=== PATIENT | male | born 1950 | race Caucasian/White ===

== ENCOUNTER 2017-06-20 15:02 | Inpatient (IN) | payer MEDICARE, OTHER, SELFPAY ==
[~2017-06-20] VITALS: Ht 182.9 cm; Wt 112.1 kg
[2017-06-20] MEDS ORDERED: SODIUM CHLORIDE 0.9% 1,000 ML IV ONE (15:18)
[2017-06-20] MEDS ORDERED: SODIUM CHLORIDE 0.9% 1,000ML IVBOLUS ONE (15:30)
[2017-06-20 15:45] LABS: HEMATOCRIT 43.7 % (39.2-51.8); HEMOGLOBIN 14.3 g/dL (13.7-18.0); WHITE BLOOD COUNT 7.6 x10^3/uL (3.4-10)
[2017-06-20 15:55] LABS: ASPARTATE AMINO TRANSFERASE 51 U/L (15-37); BLOOD UREA NITROGEN 41 mg/dL (7-18)
[2017-06-20 17:21] LABS: DAU SCREEN DISCLAIMER
[2017-06-20 17:28] LABS: PATH.CAST-FLAG NOT PRESENT; SPERM-FLAG NOT PRESENT; SRC-FLAG NOT PRESENT; XTAL-FLAG NOT PRESENT; YLC-FLAG NOT PRESENT
[2017-06-20] MEDS ORDERED: LABETALOL 5MG/ML, 20ML ONE (19:51)
[2017-06-20] MEDS ORDERED: LABETALOL 5MG/ML, 20ML IVPush ONE (20:00)
[2017-06-20 20:30] VITALS: BP 148/76
[2017-06-20] MEDS ORDERED: INSULIN ASPART 100 UNITS/ML, PEN SQ-INSULIN SCH (21:00)
[2017-06-20] MEDS ORDERED: GLUCAGON 1 MG IM PRN (23:30)
[2017-06-20] MEDS ORDERED: DEXTROSE 4 GM TAB.CHEW PO PRN (23:30)
[2017-06-20] MEDS ORDERED: ACETAMINOPHEN 325 MG TABLET PO PRN (23:30)
[2017-06-20] MEDS ORDERED: BISACODYL 10 MG SUPP PR PRN (23:30)
[2017-06-20] MEDS ORDERED: LABETALOL 5MG/ML, 20ML IVPush PRN (23:30)
[2017-06-20] MEDS ORDERED: DOCUSATE 100 MG CAPSULE PO PRN (23:30)
[2017-06-20] MEDS ORDERED: DEXTROSE 50%, 50ML SYRINGE IVPush PRN (23:30)
[2017-06-20] MEDS ORDERED: POLYETHYLENE GLYCOL 17 GM PACKET PO PRN (23:30)
[2017-06-20] MEDS ORDERED: ONDANSETRON 2MG/ML, 2ML IVPush PRN (23:30)
[2017-06-20] MEDS: HEPARIN 5,000 UNITS/ML, 1ML SQ SCH (23:36)
[2017-06-21] MEDS: SODIUM CHLORIDE 0.9% 1,000 ML IV SCH ×2 (00:25→08:06)
[2017-06-21 01:25] VITALS: BP 124/76
[2017-06-21 05:47] LABS: HEMATOCRIT 41.7 % (39.2-51.8); HEMOGLOBIN 13.7 g/dL (13.7-18.0)
[2017-06-21 06:05] LABS: ASPARTATE AMINO TRANSFERASE 50 U/L (15-37); BLOOD UREA NITROGEN 17 mg/dL (7-18)
[2017-06-21 07:30] VITALS: BP 139/77
[2017-06-21] MEDS: INSULIN ASPART 100 UNITS/ML, PEN SQ-INSULIN SCH ×4 (08:03→20:52)
[2017-06-21] MEDS: HEPARIN 5,000 UNITS/ML, 1ML SQ SCH ×3 (08:03→23:30)
[2017-06-21] MEDS: INSULIN DETEMIR 100 UNITS/ML, PEN SQ-INSULIN SCH ×2 (08:04→18:28)
[2017-06-21] MEDS: SODIUM CHLORIDE FLUSH 10ML SYR IVF SCH ×2 (08:06→20:52)
[2017-06-21 08:36] LABS: HEP B SURF. AB 89.8 mIU/mL (0.0-10.0)
[2017-06-21 16:00] VITALS: BP 120/65
[2017-06-21 19:58] VITALS: BP 148/76
[2017-06-22 01:16] VITALS: BP 129/75
[2017-06-22 05:40] LABS: HEMOGLOBIN 13.5 g/dL (13.7-18.0); WHITE BLOOD COUNT 8.1 x10^3/uL (3.4-10)
[2017-06-22 06:22] LABS: ASPARTATE AMINO TRANSFERASE 36 U/L (15-37); BLOOD UREA NITROGEN 13 mg/dL (7-18)
[2017-06-22 07:20] VITALS: BP 128/77
[2017-06-22] MEDS: HEPARIN 5,000 UNITS/ML, 1ML SQ SCH ×3 (07:30→23:30)
[2017-06-22] MEDS: SODIUM CHLORIDE FLUSH 10ML SYR IVF SCH ×2 (09:00→21:00)
[2017-06-22] MEDS: INSULIN DETEMIR 100 UNITS/ML, PEN SQ-INSULIN SCH ×4 (09:14→22:33)
[2017-06-22] MEDS: INSULIN ASPART 100 UNITS/ML, PEN SQ-INSULIN SCH ×5 (09:16→22:33)
[2017-06-22 12:21] VITALS: BP 127/80
[2017-06-22] MEDS ORDERED: morphine SULFATE 10 MG/ML, 1ML IVPush ONE (14:00)
[2017-06-22] MEDS ORDERED: HYDROcodone/APAP 5/325 TABLET PO PRN (17:00)
[2017-06-22 18:58] VITALS: BP 135/73
[2017-06-22] MEDS ORDERED: LIDOCAINE GEL 2%, 5ML TP ONE (23:30)
[2017-06-22] MEDS ORDERED: MORPHINE SULFATE 4 MG/ML, 1ML IVPush ONE (23:30)
[2017-06-22 23:39] VITALS: BP 148/92
[2017-06-23 01:55] LABS: HEMATOCRIT 42.2 % (39.2-51.8); HEMOGLOBIN 13.9 g/dL (13.7-18.0)
[2017-06-23 02:05] LABS: BLOOD UREA NITROGEN 25 mg/dL (7-18)
[2017-06-23 03:09] VITALS: BP 141/84
[2017-06-23] MEDS ORDERED: PHARMACY MAY ADJ FOR RENAL FX MC PRN (04:30)
[2017-06-23] MEDS: CEFEPIME 1 GM in DEXTROSE 5% 50 ML IV SCH (05:02)
[2017-06-23 05:33] VITALS: BP 144/84
[2017-06-23] MEDS: TAMSULOSIN 0.4 MG CAP.ER.24H PO SCH ×2 (05:49→10:51)
[2017-06-23 06:36] VITALS: BP 129/88
[2017-06-23] MEDS: INSULIN ASPART 100 UNITS/ML, PEN SQ-INSULIN SCH ×4 (07:00→21:13)
[2017-06-23] MEDS: SODIUM CHLORIDE FLUSH 10ML SYR IVF SCH ×2 (10:51→21:14)
[2017-06-23] MEDS: INSULIN DETEMIR 100 UNITS/ML, PEN SQ-INSULIN SCH ×2 (10:52→21:14)
[2017-06-23 13:55] VITALS: BP 106/70
[2017-06-23 20:30] VITALS: BP 115/74
[2017-06-24] MEDS: CEFEPIME 1 GM in DEXTROSE 5% 50 ML IV SCH ×2 (05:00→16:30)
[2017-06-24 05:07] VITALS: BP 116/75
[2017-06-24 05:55] LABS: BLOOD UREA NITROGEN 29 mg/dL (7-18)
[2017-06-24 05:56] LABS: HEMOGLOBIN 11.8 g/dL (13.7-18.0); WHITE BLOOD COUNT 13.8 x10^3/uL (3.4-10)
[2017-06-24 05:58] LABS: ASPARTATE AMINO TRANSFERASE 33 U/L (15-37)
[2017-06-24 07:33] VITALS: BP 117/76
[2017-06-24] MEDS: INSULIN ASPART 100 UNITS/ML, PEN SQ-INSULIN SCH ×4 (07:42→22:00)
[2017-06-24] MEDS: SODIUM CHLORIDE FLUSH 10ML SYR IVF SCH ×2 (09:07→22:00)
[2017-06-24] MEDS: TAMSULOSIN 0.4 MG CAP.ER.24H PO SCH (09:07)
[2017-06-24] MEDS: INSULIN DETEMIR 100 UNITS/ML, PEN SQ-INSULIN SCH ×2 (09:07→22:00)
[2017-06-24 12:53] VITALS: BP 125/73
[2017-06-24 19:29] VITALS: BP 111/63
[2017-06-25 01:02] VITALS: BP 115/67
[2017-06-25] MEDS: CEFEPIME 1 GM in DEXTROSE 5% 50 ML IV SCH ×2 (04:56→17:46)
[2017-06-25 06:02] LABS: HEMATOCRIT 32.5 % (39.2-51.8); HEMOGLOBIN 10.9 g/dL (13.7-18.0); WHITE BLOOD COUNT 9.2 x10^3/uL (3.4-10)
[2017-06-25 06:13] LABS: ASPARTATE AMINO TRANSFERASE 69 U/L (15-37); BLOOD UREA NITROGEN 25 mg/dL (7-18)
[2017-06-25 06:55] VITALS: BP 118/68
[2017-06-25] MEDS: TAMSULOSIN 0.4 MG CAP.ER.24H PO SCH (09:36)
[2017-06-25] MEDS: SODIUM CHLORIDE FLUSH 10ML SYR IVF SCH ×2 (09:36→20:35)
[2017-06-25] MEDS: INSULIN DETEMIR 100 UNITS/ML, PEN SQ-INSULIN SCH ×2 (09:36→20:36)
[2017-06-25] MEDS: INSULIN ASPART 100 UNITS/ML, PEN SQ-INSULIN SCH ×4 (09:36→20:36)
[2017-06-25 12:10] VITALS: BP 108/66
[2017-06-25 19:27] VITALS: BP 124/66
[2017-06-26 01:27] VITALS: BP 120/70
[2017-06-26] MEDS: CEFEPIME 1 GM in DEXTROSE 5% 50 ML IV SCH (04:25)
[2017-06-26 07:45] VITALS: BP 127/74
[2017-06-26] MEDS: INSULIN ASPART 100 UNITS/ML, PEN SQ-INSULIN SCH ×4 (08:34→21:10)
[2017-06-26] MEDS: SODIUM CHLORIDE FLUSH 10ML SYR IVF SCH ×2 (08:35→20:47)
[2017-06-26] MEDS: TAMSULOSIN 0.4 MG CAP.ER.24H PO SCH (08:35)
[2017-06-26] MEDS: INSULIN DETEMIR 100 UNITS/ML, PEN SQ-INSULIN SCH ×2 (08:35→21:09)
[2017-06-26 13:57] VITALS: BP 126/64
[2017-06-26] MEDS ORDERED: TAMS-11 PO (16:28)
[2017-06-26] MEDS ORDERED: INSU100I18 SQ-INSULIN (16:28)
[2017-06-26] MEDS ORDERED: INSU100I28 SQ-INSULIN (16:28)
[2017-06-26] MEDS ORDERED: NITR100C56 PO (16:28)
[2017-06-26] MEDS ORDERED: ACET325T14 PO (16:28)
[2017-06-26 20:18] VITALS: BP 127/51
[2017-06-26] MEDS: NITROFURANTOIN (MACROBID) 100 MG CAPSULE PO SCH (20:46)
[2017-06-27 01:23] VITALS: BP 119/72
[2017-06-27 03:06] LABS: PSA, FREE 1.19 ng/mL
[2017-06-27 05:19] LABS: HEMATOCRIT 32.9 % (39.2-51.8); HEMOGLOBIN 11.1 g/dL (13.7-18.0); WHITE BLOOD COUNT 7.6 x10^3/uL (3.4-10)
[2017-06-27 05:47] LABS: ASPARTATE AMINO TRANSFERASE 59 U/L (15-37); BLOOD UREA NITROGEN 16 mg/dL (7-18)
[2017-06-27 07:47] VITALS: BP 125/79
[2017-06-27] MEDS: SODIUM CHLORIDE FLUSH 10ML SYR IVF SCH (09:00)
[2017-06-27] MEDS: INSULIN ASPART 100 UNITS/ML, PEN SQ-INSULIN SCH ×2 (09:01→12:37)
[2017-06-27] MEDS: INSULIN DETEMIR 100 UNITS/ML, PEN SQ-INSULIN SCH (09:01)
[2017-06-27] MEDS: TAMSULOSIN 0.4 MG CAP.ER.24H PO SCH (09:02)
[2017-06-27] MEDS: NITROFURANTOIN (MACROBID) 100 MG CAPSULE PO SCH (09:02)
[2017-06-27] MEDS ORDERED: FLU VACC QS2017-18 (36MOS+) UP/PF 0.5 ML IM-VACC ONE (12:30)
== END 2017-06-27 13:10 | DRG 682 ==
LOC: ED 18:04 → EDIP 18:05 → ED 18:29 → 3NE 20:25
PROVIDERS: ADMIT Hospitalist; ATTEND Hospitalist
PROC: 0T9B70Z Drainage of Bladder with Drainage Device, Via Natural or Artificial Opening (ICD-10-PCS; principal; 2017-06-20)
PROC: 0T9B80Z Drainage of Bladder with Drainage Device, Via Natural or Artificial Opening Endoscopic (ICD-10-PCS; 2017-06-23)
PROC: 0TJB8ZZ Inspection of Bladder, Via Natural or Artificial Opening Endoscopic (ICD-10-PCS; 2017-06-23)
DX: N17.9 Acute kidney failure, unspecified (principal); R53.2 Functional quadriplegia; E44.0 Moderate protein-calorie malnutrition; E11.42 Type 2 diabetes mellitus with diabetic polyneuropathy; E11.65 Type 2 diabetes mellitus with hyperglycemia; D64.9 Anemia, unspecified; S91.101A Unspecified open wound of right great toe without damage to nail, initial encounter; S37.30XA Unspecified injury of urethra, initial encounter; N13.30 Unspecified hydronephrosis; K75.81 Nonalcoholic steatohepatitis (NASH); N40.0 Benign prostatic hyperplasia without lower urinary tract symptoms; G51.0 Bell's palsy; I10 Essential (primary) hypertension; I16.0 Hypertensive urgency; J32.9 Chronic sinusitis, unspecified; M51.36 Other intervertebral disc degeneration, lumbar region; N28.1 Cyst of kidney, acquired; N31.9 Neuromuscular dysfunction of bladder, unspecified; N39.41 Urge incontinence; Z86.73 Personal history of transient ischemic attack (TIA), and cerebral infarction without residual deficits; Z23 Encounter for immunization; Z68.33 Body mass index [BMI] 33.0-33.9, adult
CPT/HCPCS: 36415; 70450; 71010; 72110; 76770; 80048; 80053; 80307; 81001; 82140; 82436; 82570; 82947; 82962; 83036; 83605; 83735; 83935; 83970; 84100; 84133; 84153; 84154; 84300; 85014; 85018; 85025; 86705; 86706; 86709; 86803; 87086; 87340; 90686; 93005; 96372; 96374; J0692; J1644; J1815; G0103; G0479; J7030

== ENCOUNTER 2017-07-02 14:33 | Inpatient (IN) | payer MEDICARE ==
[~2017-07-02] VITALS: Ht 182.9 cm; Wt 119.0 kg
[~2017-07-02 14:33] MED LIST: ACET325T14 PO; INSU100I18 SQ-INSULIN; INSU100I28 SQ-INSULIN; NITR100C56 PO; TAMS-11 PO
[2017-07-02 15:00] LABS: MEAN CORPUSCULAR HEMOGLOBIN 30.6 pg (27.5-34.5); MEAN CORPUSCULAR HGB CONC 33.4 g/dL (33.2-36.2); MEAN CORPUSCULAR VOLUME 91.5 fL (81-97); MEAN PLATELET VOLUME 7.8 fL (7.4-10.4); PLATELET COUNT 314 x10^3/uL (130-400); RED BLOOD COUNT 2.87 x10^6/uL (4.38-5.82); RED CELL DISTRIBUTION WIDTH 13.9 % (9.4-14.8)
[2017-07-02] MEDS ORDERED: SODIUM CHLORIDE FLUSH 10ML SYR IVF ONE (15:00)
[2017-07-02 15:06] LABS: ALBUMIN 2.2 g/dL (3.4-5.0); ANION GAP 7 mmol/L (5-15); CALCIUM 7.9 mg/dL (8.5-10.1); CHLORIDE 102 mmol/L (98-107); CREATININE 1.08 mg/dL (0.7-1.3)
[2017-07-02 15:11] LABS: BASOPHILS # (AUTO) 0.01 x10^3/uL (0-0.1); BASOPHILS % (AUTO) 0 % (0-1); EOSINOPHILS # (AUTO) 0.03 x10^3/uL (0-0.4); EOSINOPHILS % (AUTO) 1 % (1-7); LYMPHOCYTES # (AUTO) 0.84 x10^3/uL (1-3.4); LYMPHOCYTES % (AUTO) 15 % (22-44); MD SCAN; MONOCYTES # (AUTO) 0.73 x10^3/uL (0.2-0.8); MONOCYTES % (AUTO) 13 % (2-9); NEUTROPHILS # (AUTO) 3.82 x10^3/uL (1.8-6.8); NEUTROPHILS % (AUTO) 71 % (42-75)
[2017-07-02 16:44] LABS: MICROSCOPIC INDICATED
[2017-07-02 16:49] LABS: CULTURE INDICATED? YES
[2017-07-02 17:41] LABS: INTERNATIONAL NORMALIZED RATIO 0.99 (0.93-1.1); PROTHROMBIN TIME 10.2 Seconds (9.6-11.5)
[2017-07-02] MEDS ORDERED: CEFTRIAXONE PMX 1GM/50ML 50 ML IV ONE (19:30)
[2017-07-02] MEDS ORDERED: CEFTRIAXONE PMX 1GM/50ML 50 ML ONE (19:37)
[2017-07-02 20:46] VITALS: BP 119/73
[2017-07-02] MEDS ORDERED: ACETAMINOPHEN 325 MG TABLET PO PRN ×2 (21:30→22:30)
[2017-07-02] MEDS ORDERED: PROMETHAZINE 25 MG/ML, 1ML IM PRN (21:30)
[2017-07-02] MEDS ORDERED: ONDANSETRON ODT 4 MG PO PRN (21:30)
[2017-07-02] MEDS ORDERED: ONDANSETRON 2MG/ML, 2ML IVPush PRN (21:30)
[2017-07-02] MEDS: SODIUM CHLORIDE 0.9% 1,000 ML IV SCH (22:08)
[2017-07-02 22:39] LABS: HEMOGLOBIN A1C 11.2 % (4.2-6.3)
[2017-07-02 22:47] LABS: ALANINE AMINOTRANSFERASE 70 U/L (12-78); ALBUMIN 2.1 g/dL (3.4-5.0); ANION GAP 4 mmol/L (5-15); CALCIUM 7.8 mg/dL (8.5-10.1); CHLORIDE 105 mmol/L (98-107); CREATININE 0.86 mg/dL (0.7-1.3)
[2017-07-02 22:50] LABS: ALKALINE PHOSPHATASE 80 U/L (45-117); BILIRUBIN,TOTAL 0.2 mg/dL (0.2-1.0); TOTAL PROTEIN 5.3 g/dL (6.4-8.2)
[2017-07-02 23:33] VITALS: BP 103/65
[2017-07-02] MEDS: METOPROLOL TARTRATE 25 MG TABLET PO SCH (23:44)
[2017-07-02] MEDS: INSULIN ASPART 100 UNITS/ML, PEN SQ-INSULIN SCH (23:52)
[2017-07-03] VITALS (9 sets, daily range): BP systolic 92–105; BP diastolic 52–62
[2017-07-03 03:08] LABS: ALANINE AMINOTRANSFERASE 63 U/L (12-78); ALBUMIN 1.8 g/dL (3.4-5.0); ANION GAP 5 mmol/L (5-15); CALCIUM 7.4 mg/dL (8.5-10.1); CHLORIDE 106 mmol/L (98-107); CHOLESTEROL, TOTAL 81 mg/dL (140-239); CREATININE 0.91 mg/dL (0.7-1.3)
[2017-07-03 03:16] LABS: ALKALINE PHOSPHATASE 71 U/L (45-117); BILIRUBIN,TOTAL 0.1 mg/dL (0.2-1.0); CHOL/HDL RATIO 3.2; HDL CHOL % 31 % (26-37); HDL CHOLESTEROL (DIRECT) 25 mg/dL (40-60); LDL CHOLESTEROL,CALCULATED 40 mg/dL (54-169); LDL/HDL RATIO 1.6 (0.5-3.0); THYROID STIMULATING HORMONE 0.991 mIU/L (0.358-3.740); TOTAL PROTEIN 5.3 g/dL (6.4-8.2); TRIGLYCERIDES 81 mg/dL (50-200); VLDL CHOLESTEROL 16 mg/dL (0-25)
[2017-07-03 03:39] LABS: MEAN CORPUSCULAR HEMOGLOBIN 30.6 pg (27.5-34.5); MEAN CORPUSCULAR HGB CONC 33.4 g/dL (33.2-36.2); MEAN CORPUSCULAR VOLUME 91.6 fL (81-97); MEAN PLATELET VOLUME 7.9 fL (7.4-10.4); PLATELET COUNT 257 x10^3/uL (130-400); RED BLOOD COUNT 2.46 x10^6/uL (4.38-5.82); RED CELL DISTRIBUTION WIDTH 14.2 % (9.4-14.8)
[2017-07-03 04:05] LABS: BASOPHILS # (AUTO) 0.02 x10^3/uL (0-0.1); BASOPHILS % (AUTO) 1 % (0-1); EOSINOPHILS # (AUTO) 0.03 x10^3/uL (0-0.4); EOSINOPHILS % (AUTO) 1 % (1-7); LYMPHOCYTES # (AUTO) 0.75 x10^3/uL (1-3.4); LYMPHOCYTES % (AUTO) 19 % (22-44); MD SCAN; MONOCYTES # (AUTO) 0.62 x10^3/uL (0.2-0.8); MONOCYTES % (AUTO) 16 % (2-9); NEUTROPHILS # (AUTO) 2.43 x10^3/uL (1.8-6.8); NEUTROPHILS % (AUTO) 63 % (42-75)
[2017-07-03] MEDS: INSULIN ASPART 100 UNITS/ML, PEN SQ-INSULIN SCH ×2 (07:00→21:53)
[2017-07-03] MEDS ORDERED: MAGNESIUM SULFATE PMX 2GM/50ML 50 ML IV ONE (07:30)
[2017-07-03] MEDS ORDERED: SODIUM PHOSPHATE 10 MMOL in SODIUM CHLORIDE 0.9% 500 ML IV ONE (07:30)
[2017-07-03] MEDS ORDERED: TAMSULOSIN 0.4 MG CAP.ER.24H PO SCH (09:00)
[2017-07-03] MEDS ORDERED: FENTANYL PF 100 MCG/2ML ONE (09:23)
[2017-07-03] MEDS ORDERED: PROPOFOL 10 MG/ML, 20ML ONE (09:29)
[2017-07-03] MEDS ORDERED: DEXAMETHASONE 4 MG/ML, 1ML ONE (09:29)
[2017-07-03] MEDS ORDERED: ONDANSETRON 2MG/ML, 2ML ONE (09:29)
[2017-07-03] MEDS ORDERED: SUCCINYLCHOLINE 20 MG/ML, 10ML ONE (09:29)
[2017-07-03] MEDS ORDERED: PHENYLEPHRINE 10 MG/ML ONE (09:29)
[2017-07-03] MEDS ORDERED: INSULIN ASPART 100 UNITS/ML, PEN SQ-INSULIN SCH ×2 (09:30→21:00)
[2017-07-03] MEDS ORDERED: VASOPRESSIN 20 UNIT/ML, 1ML ONE (09:44)
[2017-07-03] MEDS ORDERED: HYDROmorphone 1 MG/ML, 1ML IV PRN (10:00)
[2017-07-03] MEDS ORDERED: ONDANSETRON 2MG/ML, 2ML IVPush PRN (10:00)
[2017-07-03] MEDS ORDERED: ALBUTEROL SULFATE 2.5 MG/3 ML NPPB PRN (10:00)
[2017-07-03] MEDS ORDERED: MIDAZOLAM 1 MG/ML, 2ML IV PRN (10:00)
[2017-07-03] MEDS ORDERED: MEPERIDINE/PF 25MG/0.5ML IVPush PRN (10:00)
[2017-07-03] MEDS ORDERED: hydrALAzine 20 MG/ML, 1ML IV PRN (10:00)
[2017-07-03] MEDS ORDERED: OXYcodone 5 MG/5 ML ORAL.SOL UDC PO PRN (10:00)
[2017-07-03] MEDS ORDERED: PROMETHAZINE 25 MG/ML, 1ML IV PRN (10:00)
[2017-07-03] MEDS ORDERED: FENTANYL PF 100 MCG/2ML IV PRN (10:00)
[2017-07-03] MEDS ORDERED: LABETALOL 5MG/ML, 20ML IV PRN (10:00)
[2017-07-03] MEDS ORDERED: OPIUM/BELLADONNA SUPP.RECT 16.2-60 MG ONE (10:41)
[2017-07-03] MEDS ORDERED: OPIUM/BELLADONNA SUPP.RECT 16.2-60 MG PR PRN (11:00)
[2017-07-03] MEDS: SODIUM CHLORIDE 0.9% 1,000 ML IV SCH ×2 (12:00→23:40)
[2017-07-03] MEDS ORDERED: OMNIPAQUE 350 MG/ML, 50 ML BOTTLE ONE (13:20)
[2017-07-03] MEDS: METOPROLOL TARTRATE 25 MG TABLET PO SCH ×2 (15:17→21:38)
[2017-07-03] MEDS: LISINOPRIL 5 MG TABLET PO SCH (15:18)
[2017-07-03] MEDS ORDERED: TAMSULOSIN 0.4 MG CAP.ER.24H PO PRN (16:00)
[2017-07-03] MEDS: FINASTERIDE 5 MG TABLET PO SCH (17:56)
[2017-07-04 02:07] VITALS: BP 117/63
[2017-07-04] MEDS ORDERED: NITR100C56 PO (04:41)
[2017-07-04] MEDS ORDERED: INSU100V13 SQ (04:41)
[2017-07-04] MEDS: SODIUM CHLORIDE 0.9% 1,000 ML IV SCH (06:31)
[2017-07-04 07:37] VITALS: BP 104/66
[2017-07-04] MEDS: METOPROLOL TARTRATE 25 MG TABLET PO SCH ×2 (08:53→20:17)
[2017-07-04] MEDS: LISINOPRIL 5 MG TABLET PO SCH (08:53)
[2017-07-04] MEDS: FINASTERIDE 5 MG TABLET PO SCH (09:52)
[2017-07-04] MEDS: INSULIN ASPART 100 UNITS/ML, PEN SQ-INSULIN SCH ×4 (09:52→20:27)
[2017-07-04 13:57] VITALS: BP 119/65
[2017-07-04 19:40] VITALS: BP 146/72
[2017-07-05 01:27] VITALS: BP 123/72
[2017-07-05 06:04] LABS: BASOPHILS # (AUTO) 0.05 x10^3/uL (0-0.1); BASOPHILS % (AUTO) 1 % (0-1); EOSINOPHILS # (AUTO) 0.03 x10^3/uL (0-0.4); EOSINOPHILS % (AUTO) 0 % (1-7); LYMPHOCYTES # (AUTO) 1.43 x10^3/uL (1-3.4); LYMPHOCYTES % (AUTO) 22 % (22-44); MD NO; MEAN CORPUSCULAR HEMOGLOBIN 30.8 pg (27.5-34.5); MEAN CORPUSCULAR HGB CONC 33.5 g/dL (33.2-36.2); MEAN CORPUSCULAR VOLUME 91.8 fL (81-97); MEAN PLATELET VOLUME 7.8 fL (7.4-10.4); MONOCYTES # (AUTO) 0.67 x10^3/uL (0.2-0.8); MONOCYTES % (AUTO) 10 % (2-9); NEUTROPHILS # (AUTO) 4.24 x10^3/uL (1.8-6.8); NEUTROPHILS % (AUTO) 66 % (42-75); PLATELET COUNT 277 x10^3/uL (130-400); RED BLOOD COUNT 2.82 x10^6/uL (4.38-5.82); RED CELL DISTRIBUTION WIDTH 14.2 % (9.4-14.8)
[2017-07-05 06:13] LABS: CHLORIDE 107 mmol/L (98-107)
[2017-07-05] MEDS: INSULIN ASPART 100 UNITS/ML, PEN SQ-INSULIN SCH ×2 (06:36→11:32)
[2017-07-05 06:39] VITALS: BP 123/70
[2017-07-05 06:41] LABS: ANION GAP 7 mmol/L (5-15); CALCIUM 7.6 mg/dL (8.5-10.1); CREATININE 0.74 mg/dL (0.7-1.3)
[2017-07-05] MEDS: LISINOPRIL 5 MG TABLET PO SCH (09:47)
[2017-07-05] MEDS: METOPROLOL TARTRATE 25 MG TABLET PO SCH (09:47)
[2017-07-05] MEDS: FINASTERIDE 5 MG TABLET PO SCH (09:47)
[2017-07-05] MEDS ORDERED: LISI5TAB7 PO ×2 (13:06→13:09)
[2017-07-05] MEDS ORDERED: OPIU1SUP PR (13:06)
[2017-07-05] MEDS ORDERED: FINA5TAB4 PO ×2 (13:06→13:09)
[2017-07-05] MEDS ORDERED: METO25TA35 PO ×2 (13:06→13:09)
[2017-07-05 13:50] VITALS: BP 113/65
[2017-07-05 14:54] VITALS: BP 117/67
== END 2017-07-05 15:30 | DRG 668 ==
LOC: ED 14:58 → EDIP 19:31 → 4NOR 20:43
PROVIDERS: ADMIT Surgery; ATTEND Surgery
PROC: 0T9B70Z Drainage of Bladder with Drainage Device, Via Natural or Artificial Opening (ICD-10-PCS; 2017-07-03)
PROC: 0TCB8ZZ Extirpation of Matter from Bladder, Via Natural or Artificial Opening Endoscopic (ICD-10-PCS; 2017-07-03)
PROC: BT141ZZ Fluoroscopy of Kidneys, Ureters and Bladder using Low Osmolar Contrast (ICD-10-PCS; 2017-07-03)
PROC: 30233N1 Transfusion of Nonautologous Red Blood Cells into Peripheral Vein, Percutaneous Approach (ICD-10-PCS; 2017-07-03)
PROC: 0T5B8ZZ Destruction of Bladder, Via Natural or Artificial Opening Endoscopic (ICD-10-PCS; principal; 2017-07-03 12:30)
DX: T83.83XA Hemorrhage due to genitourinary prosthetic devices, implants and grafts, initial encounter (principal); R53.2 Functional quadriplegia; N17.9 Acute kidney failure, unspecified; E11.42 Type 2 diabetes mellitus with diabetic polyneuropathy; D62 Acute posthemorrhagic anemia; E11.65 Type 2 diabetes mellitus with hyperglycemia; N13.30 Unspecified hydronephrosis; S37.30XA Unspecified injury of urethra, initial encounter; N39.0 Urinary tract infection, site not specified; I11.9 Hypertensive heart disease without heart failure; R31.0 Gross hematuria; G51.0 Bell's palsy; K75.81 Nonalcoholic steatohepatitis (NASH); N40.0 Benign prostatic hyperplasia without lower urinary tract symptoms; R09.02 Hypoxemia; Y84.6 Urinary catheterization as the cause of abnormal reaction of the patient, or of later complication, without mention of misadventure at the time of the procedure; Z86.73 Personal history of transient ischemic attack (TIA), and cerebral infarction without residual deficits
CPT/HCPCS: 36415; 36430; 36600; 51702; 71010; 74420; 76700; 76770; 80048; 80053; 80061; 81001; 82040; 82803; 82962; 83036; 83735; 84100; 84443; 85014; 85018; 85025; 85610; 85730; 86850; 86900; 86923; 87086; 88112; 96365; J0696; J1100; J1815; J2405; J2704; J3010; Q9967; C1758; J0330; J2370; J3475; J7030; J7040; P9016

== ENCOUNTER 2017-08-17 15:45 | Inpatient (IN) | payer MEDICARE ==
[~2017-08-17] VITALS: Ht 182.9 cm; Wt 119.0 kg
[~2017-08-17 15:45] MED LIST changes: +FINA5TAB4 PO; +INSU100V13 SQ; +LISI5TAB7 PO; +METO25TA35 PO; +OPIU1SUP PR
[2017-08-17] MEDS ORDERED: SODIUM CHLORIDE FLUSH 10ML SYR IVF ONE ×2 (16:00→19:00)
[2017-08-17] MEDS ORDERED: AMPICILLIN/SULBACTAM 3 GM in SODIUM CHLORIDE 0.9% 100 ML IVPB ONE (16:00)
[2017-08-17 16:27] LABS: BASOPHILS # (AUTO) 0.03 x10^3/uL (0-0.1); BASOPHILS % (AUTO) 0 % (0-1); EOSINOPHILS # (AUTO) 0.18 x10^3/uL (0-0.4); EOSINOPHILS % (AUTO) 3 % (1-7); LYMPHOCYTES # (AUTO) 1.08 x10^3/uL (1-3.4); LYMPHOCYTES % (AUTO) 15 % (22-44); MD NO; MEAN CORPUSCULAR HEMOGLOBIN 27.2 pg (27.5-34.5); MEAN CORPUSCULAR HGB CONC 31.5 g/dL (33.2-36.2); MEAN CORPUSCULAR VOLUME 86.4 fL (81-97); MEAN PLATELET VOLUME 7.4 fL (7.4-10.4); MONOCYTES # (AUTO) 0.81 x10^3/uL (0.2-0.8); MONOCYTES % (AUTO) 12 % (2-9); NEUTROPHILS % (AUTO) 70 % (42-75); PLATELET COUNT 425 x10^3/uL (130-400); RED BLOOD COUNT 3.98 x10^6/uL (4.38-5.82); RED CELL DISTRIBUTION WIDTH 15.6 % (9.4-14.8)
[2017-08-17 16:37] LABS: ALBUMIN 2.7 g/dL (3.4-5.0); ANION GAP 7 mmol/L (5-15); CALCIUM 8.6 mg/dL (8.5-10.1); CHLORIDE 104 mmol/L (98-107); CREATININE 0.81 mg/dL (0.7-1.3)
[2017-08-17] MEDS ORDERED: FUROSEMIDE 40 MG/4 ML IV ONE (19:00)
[2017-08-17] MEDS ORDERED: POTASSIUM CHLORIDE 20 MEQ TAB.ER.PRT PO ONE (19:00)
[2017-08-17] MEDS ORDERED: FUROSEMIDE 40 MG/4 ML ONE (19:04)
[2017-08-17] MEDS ORDERED: POTASSIUM CHLORIDE 20 MEQ TAB.ER.PRT ONE (19:04)
[2017-08-17] MEDS ORDERED: ENOXAPARIN 80 MG/0.8 ML ONE (20:27)
[2017-08-17] MEDS ORDERED: ENOXAPARIN 120MG/0.8ML SQ SCH (20:30)
[2017-08-17 22:58] VITALS: BP 117/70
[2017-08-17] MEDS ORDERED: ONDANSETRON 2MG/ML, 2ML IVPush PRN (23:00)
[2017-08-17] MEDS ORDERED: ACETAMINOPHEN 325 MG TABLET PO PRN (23:00)
[2017-08-17] MEDS ORDERED: VANCOMYCIN PER PHARMACY MC PRN ×2 (23:00→23:30)
[2017-08-17] MEDS ORDERED: ENALAPRILAT 1.25 MG/ML, 2ML IVPush PRN (23:00)
[2017-08-17] MEDS ORDERED: hydrALAzine 20 MG/ML, 1ML IVPush PRN (23:00)
[2017-08-17] MEDS: FUROSEMIDE 20 MG TABLET PO SCH (23:00)
[2017-08-17] MEDS ORDERED: morphine SULFATE 10 MG/ML, 1ML IVPush PRN (23:00)
[2017-08-17] MEDS ORDERED: VANCOMYCIN PMX 1GM/200ML 200 ML IV ONE (23:00)
[2017-08-17] MEDS ORDERED: OXYcodone IR 5MG TABLET PO PRN (23:00)
[2017-08-17] MEDS ORDERED: POLYETHYLENE GLYCOL 17 GM PACKET PO PRN (23:00)
[2017-08-17] MEDS ORDERED: BISACODYL 10 MG SUPP PR PRN (23:00)
[2017-08-17] MEDS ORDERED: PHARMACOKINETIC MONITORING MC PRN (23:30)
[2017-08-17] MEDS ORDERED: VANCOMYCIN 2,000 MG in SODIUM CHLORIDE 0.9% 500 ML IV ONE (23:30)
[2017-08-18 00:05] LABS: HEMOGLOBIN A1C 7.5 % (4.2-6.3)
[2017-08-18 00:37] LABS: FREE T4 (FREE THYROXINE) 1.15 ng/dL (0.76-1.46); THYROID STIMULATING HORMONE 1.2 mIU/L (0.358-3.740)
[2017-08-18] MEDS: INSULIN GLARGINE 100 UNITS/ML, PEN SQ-INSULIN SCH ×2 (01:01→20:02)
[2017-08-18 01:23] VITALS: BP 126/72
[2017-08-18] MEDS: AMPICILLIN/SULBACTAM 3 GM in SODIUM CHLORIDE 0.9% 100 ML IV SCH ×5 (02:23→22:19)
[2017-08-18 04:51] LABS: BASOPHILS # (AUTO) 0.02 x10^3/uL (0-0.1); BASOPHILS % (AUTO) 0 % (0-1); EOSINOPHILS # (AUTO) 0.17 x10^3/uL (0-0.4); EOSINOPHILS % (AUTO) 3 % (1-7); LYMPHOCYTES # (AUTO) 1.28 x10^3/uL (1-3.4); LYMPHOCYTES % (AUTO) 21 % (22-44); MD NO; MEAN CORPUSCULAR HEMOGLOBIN 28.1 pg (27.5-34.5); MEAN CORPUSCULAR HGB CONC 32.7 g/dL (33.2-36.2); MEAN CORPUSCULAR VOLUME 85.9 fL (81-97); MEAN PLATELET VOLUME 7.6 fL (7.4-10.4); MONOCYTES # (AUTO) 0.83 x10^3/uL (0.2-0.8); MONOCYTES % (AUTO) 14 % (2-9); NEUTROPHILS # (AUTO) 3.69 x10^3/uL (1.8-6.8); NEUTROPHILS % (AUTO) 62 % (42-75); PLATELET COUNT 348 x10^3/uL (130-400); RED BLOOD COUNT 3.58 x10^6/uL (4.38-5.82); RED CELL DISTRIBUTION WIDTH 15.6 % (9.4-14.8)
[2017-08-18 04:56] LABS: CHLORIDE 106 mmol/L (98-107)
[2017-08-18 05:04] LABS: ALANINE AMINOTRANSFERASE 16 U/L (12-78); ALBUMIN 2.2 g/dL (3.4-5.0); ALKALINE PHOSPHATASE 71 U/L (45-117); ANION GAP 7 mmol/L (5-15); BILIRUBIN,TOTAL 0.4 mg/dL (0.2-1.0); CHOL/HDL RATIO 3.5; CHOLESTEROL, TOTAL 81 mg/dL (140-239); CREATININE 0.72 mg/dL (0.7-1.3); HDL CHOL % 28 % (26-37); HDL CHOLESTEROL (DIRECT) 23 mg/dL (40-60); LDL CHOLESTEROL,CALCULATED 43 mg/dL (54-169); LDL/HDL RATIO 1.9 (0.5-3.0); TOTAL PROTEIN 6.1 g/dL (6.4-8.2); TRIGLYCERIDES 77 mg/dL (50-200); VLDL CHOLESTEROL 15 mg/dL (0-25)
[2017-08-18 06:46] LABS: MICROSCOPIC AUTO
[2017-08-18 06:56] LABS: CULTURE INDICATED? YES
[2017-08-18] MEDS: INSULIN LISPRO 100 UNITS/ML, PEN SQ-INSULIN SCH ×4 (07:00→20:02)
[2017-08-18 08:08] VITALS: BP 135/63
[2017-08-18] MEDS: FINASTERIDE 5 MG TABLET PO SCH (08:13)
[2017-08-18] MEDS: LISINOPRIL 5 MG TABLET PO SCH (08:13)
[2017-08-18] MEDS: METOPROLOL TARTRATE 25 MG TABLET PO SCH ×2 (08:13→20:01)
[2017-08-18] MEDS: FUROSEMIDE 20 MG TABLET PO SCH ×2 (08:13→17:27)
[2017-08-18] MEDS: TAMSULOSIN 0.4 MG CAP.ER.24H PO SCH (08:13)
[2017-08-18] MEDS: SENNA/DOCUSATE TABLET PO SCH (08:14)
[2017-08-18 09:30] LABS: % IRON SATURATION 6 % (20-55); IRON LEVEL 14 mcg/dL (65-175); TOTAL IRON BINDING CAPACITY 234 mcg/dL (250-450)
[2017-08-18] MEDS: ENOXAPARIN 120MG/0.8ML SQ SCH ×2 (10:26→20:01)
[2017-08-18 14:58] VITALS: BP 123/70
[2017-08-18 19:08] VITALS: BP 126/62
[2017-08-18] MEDS: VANCOMYCIN 2,000 MG in SODIUM CHLORIDE 0.9% 500 ML IV SCH (23:06)
[2017-08-19 01:56] VITALS: BP 127/70
[2017-08-19] MEDS: AMPICILLIN/SULBACTAM 3 GM in SODIUM CHLORIDE 0.9% 100 ML IV SCH ×4 (04:05→23:36)
[2017-08-19 04:58] LABS: BASOPHILS # (AUTO) 0.04 x10^3/uL (0-0.1); BASOPHILS % (AUTO) 1 % (0-1); EOSINOPHILS # (AUTO) 0.19 x10^3/uL (0-0.4); EOSINOPHILS % (AUTO) 4 % (1-7); LYMPHOCYTES % (AUTO) 26 % (22-44); MD NO; MEAN CORPUSCULAR HEMOGLOBIN 27.8 pg (27.5-34.5); MEAN CORPUSCULAR HGB CONC 32.6 g/dL (33.2-36.2); MEAN CORPUSCULAR VOLUME 85.5 fL (81-97); MEAN PLATELET VOLUME 7.8 fL (7.4-10.4); MONOCYTES # (AUTO) 0.55 x10^3/uL (0.2-0.8); MONOCYTES % (AUTO) 11 % (2-9); NEUTROPHILS % (AUTO) 58 % (42-75); PLATELET COUNT 326 x10^3/uL (130-400); RED CELL DISTRIBUTION WIDTH 15.3 % (9.4-14.8)
[2017-08-19 05:09] LABS: ALBUMIN 2.1 g/dL (3.4-5.0); ANION GAP 7 mmol/L (5-15); CHLORIDE 107 mmol/L (98-107)
[2017-08-19 05:12] LABS: ALANINE AMINOTRANSFERASE 19 U/L (12-78); ALKALINE PHOSPHATASE 71 U/L (45-117); BILIRUBIN,TOTAL 0.3 mg/dL (0.2-1.0); CREATININE 0.73 mg/dL (0.7-1.3); TOTAL PROTEIN 6.1 g/dL (6.4-8.2)
[2017-08-19 06:55] VITALS: BP 116/56
[2017-08-19] MEDS: INSULIN LISPRO 100 UNITS/ML, PEN SQ-INSULIN SCH ×4 (07:00→20:38)
[2017-08-19] MEDS ORDERED: WARFARIN HIGH DOSE PROTOCOL XX PRN (07:30)
[2017-08-19 08:36] LABS: INTERNATIONAL NORMALIZED RATIO 1.04 (0.93-1.1); PROTHROMBIN TIME 10.7 Seconds (9.6-11.5)
[2017-08-19] MEDS: IRON SUCROSE COMPLEX 100MG/5ML IV SCH (08:50)
[2017-08-19] MEDS: FUROSEMIDE 20 MG TABLET PO SCH ×2 (08:51→17:36)
[2017-08-19] MEDS: TAMSULOSIN 0.4 MG CAP.ER.24H PO SCH (08:51)
[2017-08-19] MEDS: LISINOPRIL 5 MG TABLET PO SCH (08:51)
[2017-08-19] MEDS: SENNA/DOCUSATE TABLET PO SCH (08:51)
[2017-08-19] MEDS: FINASTERIDE 5 MG TABLET PO SCH (08:52)
[2017-08-19] MEDS: ENOXAPARIN 120MG/0.8ML SQ SCH ×2 (08:52→20:36)
[2017-08-19] MEDS: METOPROLOL TARTRATE 25 MG TABLET PO SCH ×2 (08:52→20:36)
[2017-08-19 12:46] VITALS: BP 109/68
[2017-08-19] MEDS ORDERED: WARFARIN 5 MG TABLET PO-COUM ONE (17:26)
[2017-08-19] MEDS ORDERED: WARFARIN 10 MG TABLET PO-COUM ONE (18:00)
[2017-08-19 19:26] VITALS: BP 120/69
[2017-08-19] MEDS: INSULIN GLARGINE 100 UNITS/ML, PEN SQ-INSULIN SCH (20:36)
[2017-08-20] MEDS: AMPICILLIN/SULBACTAM 3 GM in SODIUM CHLORIDE 0.9% 100 ML IV SCH ×4 (01:15→20:47)
[2017-08-20] MEDS: VANCOMYCIN 2,000 MG in SODIUM CHLORIDE 0.9% 500 ML IV SCH (02:43)
[2017-08-20 02:59] VITALS: BP 108/62
[2017-08-20] MEDS: SENNA/DOCUSATE TABLET PO SCH (07:57)
[2017-08-20] MEDS: IRON SUCROSE COMPLEX 100MG/5ML IV SCH (07:57)
[2017-08-20] MEDS: METOPROLOL TARTRATE 25 MG TABLET PO SCH ×2 (07:57→21:00)
[2017-08-20] MEDS: ENOXAPARIN 120MG/0.8ML SQ SCH ×2 (07:57→21:00)
[2017-08-20] MEDS: FUROSEMIDE 20 MG TABLET PO SCH ×2 (07:58→17:19)
[2017-08-20] MEDS: INSULIN LISPRO 100 UNITS/ML, PEN SQ-INSULIN SCH ×4 (07:58→20:59)
[2017-08-20] MEDS: TAMSULOSIN 0.4 MG CAP.ER.24H PO SCH (07:58)
[2017-08-20] MEDS: FINASTERIDE 5 MG TABLET PO SCH (07:58)
[2017-08-20] MEDS: LISINOPRIL 5 MG TABLET PO SCH (07:58)
[2017-08-20 07:59] VITALS: BP 135/68
[2017-08-20 08:19] LABS: INTERNATIONAL NORMALIZED RATIO 1.04 (0.93-1.1); PROTHROMBIN TIME 10.7 Seconds (9.6-11.5)
[2017-08-20 12:38] VITALS: BP 132/71
[2017-08-20] MEDS ORDERED: WARFARIN 7.5 MG TABLET PO-COUM ONE (18:00)
[2017-08-20 19:48] VITALS: BP 132/62
[2017-08-20] MEDS ORDERED: VANCOMYCIN 2,000 MG in SODIUM CHLORIDE 0.9% 500 ML IV SCH (20:00)
[2017-08-20] MEDS: INSULIN GLARGINE 100 UNITS/ML, PEN SQ-INSULIN SCH (20:59)
[2017-08-21 01:31] VITALS: BP 132/73
[2017-08-21] MEDS: AMPICILLIN/SULBACTAM 3 GM in SODIUM CHLORIDE 0.9% 100 ML IV SCH ×2 (03:00→09:04)
[2017-08-21 05:26] LABS: INTERNATIONAL NORMALIZED RATIO 1.14 (0.93-1.1); PROTHROMBIN TIME 11.7 Seconds (9.6-11.5)
[2017-08-21 06:26] LABS: ALANINE AMINOTRANSFERASE 21 U/L (12-78); ALBUMIN 2.2 g/dL (3.4-5.0); ANION GAP 6 mmol/L (5-15); CALCIUM 8.1 mg/dL (8.5-10.1); CHLORIDE 106 mmol/L (98-107); CREATININE 0.73 mg/dL (0.7-1.3)
[2017-08-21 06:28] LABS: ALKALINE PHOSPHATASE 75 U/L (45-117); BILIRUBIN,TOTAL 0.3 mg/dL (0.2-1.0); TOTAL PROTEIN 6.4 g/dL (6.4-8.2)
[2017-08-21 06:43] VITALS: BP 134/61
[2017-08-21] MEDS: INSULIN LISPRO 100 UNITS/ML, PEN SQ-INSULIN SCH ×2 (06:46→11:14)
[2017-08-21] MEDS: FUROSEMIDE 20 MG TABLET PO SCH (07:47)
[2017-08-21] MEDS: LISINOPRIL 5 MG TABLET PO SCH (07:47)
[2017-08-21] MEDS: TAMSULOSIN 0.4 MG CAP.ER.24H PO SCH (07:47)
[2017-08-21] MEDS: METOPROLOL TARTRATE 25 MG TABLET PO SCH (07:47)
[2017-08-21] MEDS: SENNA/DOCUSATE TABLET PO SCH (07:47)
[2017-08-21] MEDS: FINASTERIDE 5 MG TABLET PO SCH (07:47)
[2017-08-21] MEDS: IRON SUCROSE COMPLEX 100MG/5ML IV SCH (07:47)
[2017-08-21] MEDS: ENOXAPARIN 120MG/0.8ML SQ SCH (07:48)
[2017-08-21] MEDS ORDERED: WARF5TAB PO (10:04)
[2017-08-21] MEDS ORDERED: INSU100I13 SQ-INSULIN ×2 (10:04→10:06)
[2017-08-21] MEDS ORDERED: AMOX1TAB64 PO (10:04)
[2017-08-21] MEDS ORDERED: ENOX120S4 SQ (10:04)
[2017-08-21 13:40] VITALS: BP 114/61
[2017-08-21] MEDS ORDERED: WARFARIN 7.5 MG TABLET PO-COUM ONE (18:00)
== END 2017-08-21 14:00 | DRG 871 ==
LOC: ED 18:47 → EDIP 20:54 → 4EST 22:40
PROVIDERS: ADMIT Internal Medicine; ATTEND Hospitalist
DX: A41.9 Sepsis, unspecified organism (principal); R53.2 Functional quadriplegia; E43 Unspecified severe protein-calorie malnutrition; D68.59 Other primary thrombophilia; E11.42 Type 2 diabetes mellitus with diabetic polyneuropathy; I82.431 Acute embolism and thrombosis of right popliteal vein; N13.30 Unspecified hydronephrosis; K75.81 Nonalcoholic steatohepatitis (NASH); L03.115 Cellulitis of right lower limb; L03.116 Cellulitis of left lower limb; I82.441 Acute embolism and thrombosis of right tibial vein; D50.0 Iron deficiency anemia secondary to blood loss (chronic); E11.9 Type 2 diabetes mellitus without complications; I10 Essential (primary) hypertension; N40.0 Benign prostatic hyperplasia without lower urinary tract symptoms; D63.8 Anemia in other chronic diseases classified elsewhere; Z68.35 Body mass index [BMI] 35.0-35.9, adult; E87.6 Hypokalemia; G51.0 Bell's palsy; Z87.891 Personal history of nicotine dependence; Z59.0 Homelessness
CPT/HCPCS: 36415; 71045; 80048; 80053; 80061; 80202; 81001; 82040; 82962; 83036; 83540; 83550; 83735; 83880; 84100; 84439; 84443; 85025; 85610; 87040; 87086; 93005; 93306; 93970; 96372; 96374; J0295; J1650; J1756; J1940; J3370; J1815; J7040

== ENCOUNTER 2017-09-06 12:09 | Emergency (ER) | payer MEDICARE ==
[~2017-09-06] VITALS: Ht 182.9 cm; Wt 81.8 kg
[~2017-09-06 12:09] MED LIST changes: +AMOX1TAB64 PO; +ENOX120S4 SQ; +INSU100I13 SQ-INSULIN; +WARF5TAB PO
[2017-09-06] MEDS ORDERED: POLY17PO5 PO (12:25)
[2017-09-06] MEDS ORDERED: SODIUM CHLORIDE 0.9% 1,000 ML IV ONE (12:31)
[2017-09-06] MEDS ORDERED: SODIUM CHLORIDE FLUSH 10ML SYR IVF ONE (13:00)
[2017-09-06 13:13] LABS: BASOPHILS # (AUTO) 0.05 x10^3/uL (0-0.1); BASOPHILS % (AUTO) 1 % (0-1); EOSINOPHILS # (AUTO) 0.18 x10^3/uL (0-0.4); EOSINOPHILS % (AUTO) 3 % (1-7); LYMPHOCYTES # (AUTO) 1.77 x10^3/uL (1-3.4); LYMPHOCYTES % (AUTO) 27 % (22-44); MD NO; MEAN CORPUSCULAR HEMOGLOBIN 27.8 pg (27.5-34.5); MEAN CORPUSCULAR HGB CONC 32.5 g/dL (33.2-36.2); MEAN CORPUSCULAR VOLUME 85.6 fL (81-97); MEAN PLATELET VOLUME 8.5 fL (7.4-10.4); MONOCYTES # (AUTO) 0.69 x10^3/uL (0.2-0.8); MONOCYTES % (AUTO) 11 % (2-9); NEUTROPHILS # (AUTO) 3.89 x10^3/uL (1.8-6.8); NEUTROPHILS % (AUTO) 59 % (42-75); PLATELET COUNT 308 x10^3/uL (130-400); RED BLOOD COUNT 4.11 x10^6/uL (4.38-5.82)
[2017-09-06 13:21] LABS: INTERNATIONAL NORMALIZED RATIO 1.33 (0.93-1.1); PROTHROMBIN TIME 13.8 Seconds (9.6-11.5)
[2017-09-06 13:22] LABS: ALANINE AMINOTRANSFERASE 23 U/L (12-78); ALBUMIN 3.1 g/dL (3.4-5.0); ANION GAP 8 mmol/L (5-15); CHLORIDE 106 mmol/L (98-107); CREATININE 1.02 mg/dL (0.7-1.3)
[2017-09-06 13:24] LABS: ALKALINE PHOSPHATASE 85 U/L (45-117); BILIRUBIN,TOTAL 0.4 mg/dL (0.2-1.0); TOTAL PROTEIN 7.2 g/dL (6.4-8.2)
[2017-09-06 13:50] LABS: MICROSCOPIC NOT IND
[2017-09-06] MEDS ORDERED: VANCOMYCIN PER PHARMACY MC PRN (14:00)
[2017-09-06] MEDS ORDERED: VANCOMYCIN 1,900 MG in SODIUM CHLORIDE 0.9% 250 ML IV ONE (14:00)
[2017-09-06] MEDS ORDERED: PHARMACOKINETIC CONSULTATION MC ONE (14:00)
[2017-09-06 14:21] LABS: CULTURE INDICATED? NO
[2017-09-06 18:42] VITALS: BP 129/69
== END 2017-09-06 18:49 | disposition short-term general hospital (02) ==
LOC: ED 17:48
DX: L03.116 Cellulitis of left lower limb (principal); L03.115 Cellulitis of right lower limb; R33.9 Retention of urine, unspecified; N40.0 Benign prostatic hyperplasia without lower urinary tract symptoms; R41.82 Altered mental status, unspecified; I82.502 Chronic embolism and thrombosis of unspecified deep veins of left lower extremity; Z79.01 Long term (current) use of anticoagulants
CPT/HCPCS: 36415; 51702; 71045; 80053; 81003; 82140; 83605; 85025; 85610; 87040; 93005; 96361; 96374; 99285; J3370; J7030; J7050

== ENCOUNTER 2018-04-01 23:16 | Emergency (ER) | payer MEDICARE ==
[~2018-04-01] VITALS: Ht 182.9 cm; Wt 120.0 kg
[~2018-04-01 23:16] MED LIST changes: +POLY17PO5 PO
[2018-04-01 23:48] LABS: MICROSCOPIC NOT IND
[2018-04-01 23:50] LABS: CULTURE INDICATED? NO
[2018-04-02] MEDS ORDERED: SODIUM CHLORIDE FLUSH 10ML SYR IVF ONE
[2018-04-02 00:01] LABS: BASOPHILS # (AUTO) 0.03 x10^3/uL (0-0.1); BASOPHILS % (AUTO) 1 % (0-1); EOSINOPHILS # (AUTO) 0.15 x10^3/uL (0-0.4); EOSINOPHILS % (AUTO) 2 % (1-7); LYMPHOCYTES # (AUTO) 1.28 x10^3/uL (1-3.4); LYMPHOCYTES % (AUTO) 19 % (22-44); MD NO; MEAN CORPUSCULAR HEMOGLOBIN 30.3 pg (27.5-34.5); MEAN CORPUSCULAR HGB CONC 32.6 g/dL (33.2-36.2); MEAN PLATELET VOLUME 8.3 fL (7.4-10.4); MONOCYTES # (AUTO) 0.79 x10^3/uL (0.2-0.8); MONOCYTES % (AUTO) 11 % (2-9); NEUTROPHILS # (AUTO) 4.65 x10^3/uL (1.8-6.8); NEUTROPHILS % (AUTO) 68 % (42-75); PLATELET COUNT 259 x10^3/uL (130-400); RED BLOOD COUNT 4.21 x10^6/uL (4.38-5.82); RED CELL DISTRIBUTION WIDTH 14.8 % (9.4-14.8)
[2018-04-02 00:04] LABS: ALANINE AMINOTRANSFERASE 39 U/L (12-78); ALBUMIN 2.7 g/dL (3.4-5.0); ANION GAP 7 mmol/L (5-15); CALCIUM 8.4 mg/dL (8.5-10.1); CHLORIDE 104 mmol/L (98-107); CREATININE 0.98 mg/dL (0.7-1.3)
[2018-04-02 00:08] LABS: ALKALINE PHOSPHATASE 167 U/L (45-117); BILIRUBIN,TOTAL 0.2 mg/dL (0.2-1.0); TOTAL PROTEIN 6.4 g/dL (6.4-8.2)
[2018-04-02 00:11] LABS: INTERNATIONAL NORMALIZED RATIO 0.96 (0.93-1.1)
[2018-04-02 00:21] VITALS: BP 112/62
== END 2018-04-02 01:39 | disposition home or self-care (01) ==
LOC: ED 23:59
DX: R60.0 Localized edema (principal); E88.09 Other disorders of plasma-protein metabolism, not elsewhere classified; R53.1 Weakness; Z87.891 Personal history of nicotine dependence; E11.9 Type 2 diabetes mellitus without complications; Z86.718 Personal history of other venous thrombosis and embolism
CPT/HCPCS: 36415; 71045; 80053; 81003; 83880; 85025; 85610; 85730; 93005; 93970; 99285

== ENCOUNTER 2018-09-09 22:25 | Inpatient (IN) | payer MEDICARE ==
[~2018-09-09] VITALS: Ht 180.3 cm; Wt 106.3 kg
[~2018-09-09 22:25] MED LIST changes: +GABA-826 PO; +INSU100I11 SQ-INSULIN; +PANT40TA5 PO
--- NOTE | 2018-09-10 03:15 | NUR ---
PT HERE FOR PAIN TO SCROTUM AND LEGS. LEGS AN DSCROTUM ARE RED AND SWOLLEN. UA OBTAINED. LINENS CHANGED ON BED. PIV PLACED AND BLOOD OBTAINED. PT RESTING. CALL LIGHT IN REACH
[2018-09-10 03:22] LABS: BASOPHILS # (AUTO) 0.01 x10^3/uL (0-0.1); BASOPHILS % (AUTO) 0 % (0-1); EOSINOPHILS # (AUTO) 0.06 x10^3/uL (0-0.4); EOSINOPHILS % (AUTO) 1 % (1-7); LYMPHOCYTES # (AUTO) 0.76 x10^3/uL (1-3.4); LYMPHOCYTES % (AUTO) 10 % (22-44); MD NO; MEAN CORPUSCULAR HEMOGLOBIN 27.7 pg (27.5-34.5); MEAN CORPUSCULAR VOLUME 83.8 fL (81-97); MEAN PLATELET VOLUME 8.7 fL (7.4-10.4); MONOCYTES # (AUTO) 0.87 x10^3/uL (0.2-0.8); MONOCYTES % (AUTO) 11 % (2-9); NEUTROPHILS # (AUTO) 5.92 x10^3/uL (1.8-6.8); NEUTROPHILS % (AUTO) 78 % (42-75); PLATELET COUNT 271 x10^3/uL (130-400); RED BLOOD COUNT 3.73 x10^6/uL (4.38-5.82); RED CELL DISTRIBUTION WIDTH 17.3 % (9.4-14.8)
[2018-09-10 03:26] LABS: ALANINE AMINOTRANSFERASE 23 U/L (12-78); ALBUMIN 2.7 g/dL (3.4-5.0); ANION GAP 8 mmol/L (5-15); CALCIUM 8.7 mg/dL (8.5-10.1); CHLORIDE 108 mmol/L (98-107); CREATININE 0.95 mg/dL (0.7-1.3)
[2018-09-10 03:28] LABS: CULTURE INDICATED? YES; MICROSCOPIC INDICATED
[2018-09-10 03:30] LABS: ALKALINE PHOSPHATASE 83 U/L (45-117); BILIRUBIN,TOTAL 0.4 mg/dL (0.2-1.0); TOTAL PROTEIN 6.6 g/dL (6.4-8.2); TROPONIN I < 0.015 ng/mL (0.000-0.045)
[2018-09-10] MEDS ORDERED: PIPERACILLIN/TAZO/PMX 3.375GM 50 ML IVPB ONE (04:00)
[2018-09-10] MEDS ORDERED: CEFTRIAXONE PMX 1GM/50ML 50 ML IV ONE (04:00)
--- NOTE | 2018-09-10 04:01 | NUR ---
PT TO CT.
[2018-09-10] MEDS ORDERED: OMNIPAQUE 350 MG/ML, 100ML BOTTLE ONE (04:15)
[2018-09-10] MEDS ORDERED: SODIUM CHLORIDE 0.9% 1,000 ML IV SCH (04:18)
[2018-09-10] MEDS ORDERED: CEFTRIAXONE PMX 1GM/50ML 50 ML ONE (04:25)
[2018-09-10] MEDS ORDERED: LABETALOL 5MG/ML, 20ML IVPush PRN (04:30)
[2018-09-10] MEDS ORDERED: BISACODYL 10 MG SUPP PR PRN (04:30)
[2018-09-10] MEDS ORDERED: VANCOMYCIN PER PHARMACY MC PRN (04:30)
[2018-09-10] MEDS ORDERED: VANCOMYCIN PMX 1GM/200ML 200 ML IV ONE (04:30)
[2018-09-10] MEDS ORDERED: DOCUSATE 100 MG CAPSULE PO PRN (04:30)
[2018-09-10] MEDS ORDERED: PROMETHAZINE 25 MG/ML, 1ML IM PRN (04:30)
[2018-09-10] MEDS ORDERED: ONDANSETRON 2MG/ML, 2ML IVPush PRN (04:30)
[2018-09-10] MEDS ORDERED: ACETAMINOPHEN 325 MG TABLET PO PRN (04:30)
[2018-09-10] MEDS ORDERED: ONDANSETRON ODT 4 MG PO PRN (04:30)
[2018-09-10] MEDS ORDERED: morphine SULFATE 10 MG/ML, 1ML IVPush PRN (04:30)
[2018-09-10] MEDS ORDERED: POLYETHYLENE GLYCOL 17 GM PACKET PO PRN (04:30)
[2018-09-10] MEDS ORDERED: hydrALAzine 20 MG/ML, 1ML IVPush PRN (04:30)
[2018-09-10] MEDS ORDERED: OXYcodone IR 5MG TABLET PO PRN (04:30)
--- NOTE | 2018-09-10 04:30 | NUR ---
ABX RUNNING. PT RESTING WITH NO NEEDS AT THIS TIME. CALL LIGHT IN REACH
[2018-09-10 04:44] LABS: HCT (SEDRATE) 31.3 % (39.2-51.8)
[2018-09-10 04:59] LABS: HEMOGLOBIN A1C 7.2 % (4.2-6.3)
--- NOTE | 2018-09-10 05:00 | NUR ---
PTS BLADDER SCANNED <22MLS. PT WAS INCONTINENT OF URINE. LINENS CHANGED. PT HAS NO OTHER NEEDS AT THIS TIME.
[2018-09-10 05:05] LABS: C-REACTIVE PROTEIN, QUANT 8.1 mg/dL (0.02-0.49); FREE T4 (FREE THYROXINE) 1.3 ng/dL (0.76-1.46); THYROID STIMULATING HORMONE 1.46 mIU/L (0.358-3.740)
[2018-09-10] MEDS ORDERED: PIPERACILLIN/TAZO/PMX 3.375GM 50 ML ONE (05:18)
[2018-09-10 07:00] VITALS: BP 116/70
[2018-09-10] MEDS ORDERED: PHARMACOKINETIC MONITORING MC PRN (07:00)
[2018-09-10] MEDS ORDERED: PHARMACOKINETIC CONSULTATION MC ONE (07:00)
[2018-09-10] MEDS: HEPARIN 5,000 UNITS/ML, 1ML SQ SCH ×3 (08:00→23:47)
[2018-09-10] MEDS: VANCOMYCIN 2,000 MG in SODIUM CHLORIDE 0.9% 500 ML IV SCH (08:00)
[2018-09-10] MEDS: TAMSULOSIN 0.4 MG CAP.ER.24H PO SCH (08:20)
[2018-09-10] MEDS: FINASTERIDE 5 MG TABLET PO SCH (08:20)
[2018-09-10] MEDS: NYSTATIN TOPICAL POWDER 15GM TP SCH ×4 (09:00→19:57)
[2018-09-10] MEDS: PIPERACILLIN/TAZO/PMX 3.375GM 50 ML IV SCH ×3 (12:48→23:46)
[2018-09-10 15:25] VITALS: BP 99/61
[2018-09-10 19:28] VITALS: BP 104/53
[2018-09-10] MEDS: OXYcodone/APAP 5/325MG TABLET PO PRN (19:57)
[2018-09-11 00:16] VITALS: BP 90/63
[2018-09-11 05:35] LABS: CHLORIDE 111 mmol/L (98-107)
[2018-09-11 05:46] LABS: BASOPHILS # (AUTO) 0.03 x10^3/uL (0-0.1); BASOPHILS % (AUTO) 1 % (0-1); EOSINOPHILS # (AUTO) 0.21 x10^3/uL (0-0.4); EOSINOPHILS % (AUTO) 5 % (1-7); LYMPHOCYTES # (AUTO) 1.18 x10^3/uL (1-3.4); LYMPHOCYTES % (AUTO) 30 % (22-44); MD NO; MEAN CORPUSCULAR HEMOGLOBIN 27.6 pg (27.5-34.5); MEAN CORPUSCULAR HGB CONC 32.4 g/dL (33.2-36.2); MEAN CORPUSCULAR VOLUME 85.2 fL (81-97); MEAN PLATELET VOLUME 8.8 fL (7.4-10.4); MONOCYTES # (AUTO) 0.46 x10^3/uL (0.2-0.8); MONOCYTES % (AUTO) 12 % (2-9); NEUTROPHILS # (AUTO) 2.08 x10^3/uL (1.8-6.8); NEUTROPHILS % (AUTO) 53 % (42-75); PLATELET COUNT 192 x10^3/uL (130-400); RED BLOOD COUNT 3.11 x10^6/uL (4.38-5.82); RED CELL DISTRIBUTION WIDTH 17.3 % (9.4-14.8)
[2018-09-11] MEDS: PIPERACILLIN/TAZO/PMX 3.375GM 50 ML IV SCH ×4 (05:46→23:57)
[2018-09-11 05:48] LABS: ALANINE AMINOTRANSFERASE 17 U/L (12-78); ALKALINE PHOSPHATASE 64 U/L (45-117); ANION GAP 5 mmol/L (5-15); BILIRUBIN,TOTAL 0.6 mg/dL (0.2-1.0); CALCIUM 7.7 mg/dL (8.5-10.1); CHOL/HDL RATIO 3.8; CHOLESTEROL, TOTAL 76 mg/dL (140-239); CREATININE 0.75 mg/dL (0.7-1.3); HDL CHOL % 26 % (26-37); HDL CHOLESTEROL (DIRECT) 20 mg/dL (40-60); LDL CHOLESTEROL,CALCULATED 40 mg/dL (54-169); TOTAL PROTEIN 5.3 g/dL (6.4-8.2); TRIGLYCERIDES 80 mg/dL (50-200); VLDL CHOLESTEROL 16 mg/dL (0-25)
[2018-09-11 07:55] VITALS: BP 95/51
[2018-09-11] MEDS: HEPARIN 5,000 UNITS/ML, 1ML SQ SCH ×3 (08:22→23:58)
[2018-09-11] MEDS: FINASTERIDE 5 MG TABLET PO SCH (08:22)
[2018-09-11] MEDS: TAMSULOSIN 0.4 MG CAP.ER.24H PO SCH (08:22)
[2018-09-11] MEDS: VANCOMYCIN 2,000 MG in SODIUM CHLORIDE 0.9% 500 ML IV SCH (08:22)
[2018-09-11] MEDS: NYSTATIN TOPICAL POWDER 15GM TP SCH ×3 (08:23→21:17)
[2018-09-11] MEDS ORDERED: POTASSIUM CHLORIDE 40 MEQ in SODIUM CHLORIDE 0.9% 500 ML IV ONE (12:00)
[2018-09-11 14:51] VITALS: BP 95/53
[2018-09-11] MEDS: LACTOBACILLUS CHEW TABLET PO SCH ×2 (16:39→21:17)
[2018-09-11 19:50] VITALS: BP 111/63
[2018-09-12 00:03] VITALS: BP 124/63
[2018-09-12] MEDS: PIPERACILLIN/TAZO/PMX 3.375GM 50 ML IV SCH ×3 (05:34→17:41)
[2018-09-12 06:44] VITALS: BP 125/70
[2018-09-12] MEDS: VANCOMYCIN 2,000 MG in SODIUM CHLORIDE 0.9% 500 ML IV SCH (08:02)
[2018-09-12] MEDS: HEPARIN 5,000 UNITS/ML, 1ML SQ SCH ×2 (08:02→16:44)
[2018-09-12] MEDS: FINASTERIDE 5 MG TABLET PO SCH (08:02)
[2018-09-12] MEDS: LACTOBACILLUS CHEW TABLET PO SCH ×3 (08:03→21:41)
[2018-09-12] MEDS: NYSTATIN TOPICAL POWDER 15GM TP SCH ×3 (08:03→21:41)
[2018-09-12] MEDS: TAMSULOSIN 0.4 MG CAP.ER.24H PO SCH (08:03)
[2018-09-12] MEDS: OXYcodone/APAP 5/325MG TABLET PO PRN (11:47)
[2018-09-12 13:13] VITALS: BP 116/64
[2018-09-12 19:18] VITALS: BP 129/73
[2018-09-13 01:50] VITALS: BP 122/69
[2018-09-13] MEDS: PIPERACILLIN/TAZO/PMX 3.375GM 50 ML IV SCH ×5 (05:41→23:48)
[2018-09-13 06:05] LABS: ANION GAP 3 mmol/L (5-15); CALCIUM 8.3 mg/dL (8.5-10.1); CHLORIDE 110 mmol/L (98-107); CREATININE 0.74 mg/dL (0.7-1.3)
[2018-09-13 06:06] LABS: BASOPHILS # (AUTO) 0.03 x10^3/uL (0-0.1); BASOPHILS % (AUTO) 1 % (0-1); EOSINOPHILS # (AUTO) 0.23 x10^3/uL (0-0.4); EOSINOPHILS % (AUTO) 6 % (1-7); LYMPHOCYTES # (AUTO) 1.14 x10^3/uL (1-3.4); LYMPHOCYTES % (AUTO) 27 % (22-44); MD NO; MEAN CORPUSCULAR HEMOGLOBIN 27.6 pg (27.5-34.5); MEAN CORPUSCULAR HGB CONC 32.8 g/dL (33.2-36.2); MEAN CORPUSCULAR VOLUME 84.2 fL (81-97); MEAN PLATELET VOLUME 8.3 fL (7.4-10.4); MONOCYTES # (AUTO) 0.45 x10^3/uL (0.2-0.8); MONOCYTES % (AUTO) 11 % (2-9); NEUTROPHILS # (AUTO) 2.34 x10^3/uL (1.8-6.8); NEUTROPHILS % (AUTO) 56 % (42-75); PLATELET COUNT 268 x10^3/uL (130-400); RED BLOOD COUNT 3.34 x10^6/uL (4.38-5.82); RED CELL DISTRIBUTION WIDTH 17.2 % (9.4-14.8)
[2018-09-13 07:24] VITALS: BP 143/62
[2018-09-13] MEDS: TAMSULOSIN 0.4 MG CAP.ER.24H PO SCH (07:56)
[2018-09-13] MEDS: VANCOMYCIN 2,000 MG in SODIUM CHLORIDE 0.9% 500 ML IV SCH (07:56)
[2018-09-13] MEDS: HEPARIN 5,000 UNITS/ML, 1ML SQ SCH ×4 (07:56→23:47)
[2018-09-13] MEDS: FINASTERIDE 5 MG TABLET PO SCH (07:56)
[2018-09-13] MEDS: NYSTATIN TOPICAL POWDER 15GM TP SCH ×3 (07:56→20:49)
[2018-09-13] MEDS: LACTOBACILLUS CHEW TABLET PO SCH ×3 (07:56→20:49)
[2018-09-13 13:27] VITALS: BP 127/70
[2018-09-13] MEDS ORDERED: VANCOMYCIN 2,200 MG in SODIUM CHLORIDE 0.9% 500 ML IV SCH (20:00)
[2018-09-13 20:38] VITALS: BP 134/61
[2018-09-14 03:07] VITALS: BP 130/69
[2018-09-14 05:39] LABS: BASOPHILS # (AUTO) 0.02 x10^3/uL (0-0.1); BASOPHILS % (AUTO) 1 % (0-1); EOSINOPHILS % (AUTO) 6 % (1-7); LYMPHOCYTES # (AUTO) 1.46 x10^3/uL (1-3.4); LYMPHOCYTES % (AUTO) 29 % (22-44); MD NO; MEAN CORPUSCULAR HEMOGLOBIN 27.5 pg (27.5-34.5); MEAN CORPUSCULAR HGB CONC 32.7 g/dL (33.2-36.2); MEAN CORPUSCULAR VOLUME 84.2 fL (81-97); MEAN PLATELET VOLUME 8.1 fL (7.4-10.4); MONOCYTES # (AUTO) 0.49 x10^3/uL (0.2-0.8); MONOCYTES % (AUTO) 10 % (2-9); NEUTROPHILS # (AUTO) 2.78 x10^3/uL (1.8-6.8); NEUTROPHILS % (AUTO) 55 % (42-75); PLATELET COUNT 305 x10^3/uL (130-400); RED BLOOD COUNT 3.55 x10^6/uL (4.38-5.82); RED CELL DISTRIBUTION WIDTH 17.1 % (9.4-14.8)
[2018-09-14] MEDS: PIPERACILLIN/TAZO/PMX 3.375GM 50 ML IV SCH (05:44)
[2018-09-14 08:07] VITALS: BP 137/71
[2018-09-14] MEDS: FINASTERIDE 5 MG TABLET PO SCH (09:10)
[2018-09-14] MEDS: DOXYCYCLINE 100MG TABLET PO SCH ×2 (09:10→22:27)
[2018-09-14] MEDS: AMOXICILLIN/CLAV 875-125MG TABLET PO SCH ×2 (09:10→22:26)
[2018-09-14] MEDS: HEPARIN 5,000 UNITS/ML, 1ML SQ SCH ×2 (09:10→16:22)
[2018-09-14] MEDS: LACTOBACILLUS CHEW TABLET PO SCH ×3 (09:10→22:26)
[2018-09-14] MEDS: TAMSULOSIN 0.4 MG CAP.ER.24H PO SCH (09:11)
[2018-09-14] MEDS: NYSTATIN TOPICAL POWDER 15GM TP SCH ×3 (09:11→22:27)
[2018-09-14 14:34] VITALS: BP 136/75
[2018-09-14 22:34] VITALS: BP 129/73
[2018-09-15] MEDS: HEPARIN 5,000 UNITS/ML, 1ML SQ SCH (00:16)
[2018-09-15 01:32] VITALS: BP 121/72
[2018-09-15 05:53] LABS: BASOPHILS # (AUTO) 0.03 x10^3/uL (0-0.1); BASOPHILS % (AUTO) 1 % (0-1); EOSINOPHILS # (AUTO) 0.26 x10^3/uL (0-0.4); EOSINOPHILS % (AUTO) 4 % (1-7); LYMPHOCYTES % (AUTO) 26 % (22-44); MD NO; MEAN CORPUSCULAR HEMOGLOBIN 27.6 pg (27.5-34.5); MEAN CORPUSCULAR HGB CONC 32.6 g/dL (33.2-36.2); MEAN CORPUSCULAR VOLUME 84.8 fL (81-97); MEAN PLATELET VOLUME 8.3 fL (7.4-10.4); MONOCYTES # (AUTO) 0.59 x10^3/uL (0.2-0.8); MONOCYTES % (AUTO) 10 % (2-9); NEUTROPHILS # (AUTO) 3.49 x10^3/uL (1.8-6.8); NEUTROPHILS % (AUTO) 59 % (42-75); PLATELET COUNT 324 x10^3/uL (130-400); RED BLOOD COUNT 3.65 x10^6/uL (4.38-5.82); RED CELL DISTRIBUTION WIDTH 17.4 % (9.4-14.8)
[2018-09-15 07:20] VITALS: BP 126/70
[2018-09-15] MEDS: ENOXAPARIN 40 MG/0.4 ML SQ SCH (08:43)
[2018-09-15] MEDS: LACTOBACILLUS CHEW TABLET PO SCH ×3 (08:43→21:23)
[2018-09-15] MEDS: FINASTERIDE 5 MG TABLET PO SCH (08:43)
[2018-09-15] MEDS: AMOXICILLIN/CLAV 875-125MG TABLET PO SCH ×2 (08:43→21:24)
[2018-09-15] MEDS: DOXYCYCLINE 100MG TABLET PO SCH ×2 (08:43→21:23)
[2018-09-15] MEDS: TAMSULOSIN 0.4 MG CAP.ER.24H PO SCH (08:43)
[2018-09-15] MEDS: NYSTATIN TOPICAL POWDER 15GM TP SCH ×3 (08:44→21:24)
[2018-09-15 13:30] VITALS: BP 137/73
[2018-09-15 20:30] VITALS: BP 126/71
[2018-09-16 03:03] VITALS: BP 109/64
[2018-09-16 04:57] LABS: BASOPHILS # (AUTO) 0.02 x10^3/uL (0-0.1); BASOPHILS % (AUTO) 0 % (0-1); EOSINOPHILS # (AUTO) 0.17 x10^3/uL (0-0.4); EOSINOPHILS % (AUTO) 3 % (1-7); LYMPHOCYTES # (AUTO) 1.44 x10^3/uL (1-3.4); LYMPHOCYTES % (AUTO) 25 % (22-44); MD NO; MEAN CORPUSCULAR HGB CONC 31.9 g/dL (33.2-36.2); MEAN CORPUSCULAR VOLUME 84.5 fL (81-97); MEAN PLATELET VOLUME 7.9 fL (7.4-10.4); MONOCYTES # (AUTO) 0.55 x10^3/uL (0.2-0.8); MONOCYTES % (AUTO) 10 % (2-9); NEUTROPHILS # (AUTO) 3.52 x10^3/uL (1.8-6.8); NEUTROPHILS % (AUTO) 62 % (42-75); PLATELET COUNT 373 x10^3/uL (130-400); RED BLOOD COUNT 3.88 x10^6/uL (4.38-5.82)
[2018-09-16 05:08] LABS: CHLORIDE 108 mmol/L (98-107)
[2018-09-16 05:14] LABS: ALANINE AMINOTRANSFERASE 59 U/L (12-78); ALBUMIN 2.4 g/dL (3.4-5.0); ALKALINE PHOSPHATASE 75 U/L (45-117); ANION GAP 5 mmol/L (5-15); BILIRUBIN,TOTAL 0.2 mg/dL (0.2-1.0); CALCIUM 8.5 mg/dL (8.5-10.1); CREATININE 0.78 mg/dL (0.7-1.3); TOTAL PROTEIN 6.6 g/dL (6.4-8.2)
[2018-09-16 07:40] VITALS: BP 119/67
[2018-09-16] MEDS: NYSTATIN TOPICAL POWDER 15GM TP SCH ×3 (07:41→21:07)
[2018-09-16] MEDS: LACTOBACILLUS CHEW TABLET PO SCH ×3 (07:41→21:07)
[2018-09-16] MEDS: AMOXICILLIN/CLAV 875-125MG TABLET PO SCH ×2 (07:41→21:07)
[2018-09-16] MEDS: DOXYCYCLINE 100MG TABLET PO SCH ×2 (07:42→21:07)
[2018-09-16] MEDS: TAMSULOSIN 0.4 MG CAP.ER.24H PO SCH (07:42)
[2018-09-16] MEDS: ENOXAPARIN 40 MG/0.4 ML SQ SCH (07:42)
[2018-09-16] MEDS: FINASTERIDE 5 MG TABLET PO SCH (07:42)
[2018-09-16 13:12] VITALS: BP 114/65
[2018-09-16 19:39] VITALS: BP 133/66
[2018-09-17 03:17] VITALS: BP 115/73
[2018-09-17 07:55] VITALS: BP 125/75
[2018-09-17] MEDS: FINASTERIDE 5 MG TABLET PO SCH (08:53)
[2018-09-17] MEDS: AMOXICILLIN/CLAV 875-125MG TABLET PO SCH ×2 (08:53→20:03)
[2018-09-17] MEDS: DOXYCYCLINE 100MG TABLET PO SCH ×2 (08:53→20:03)
[2018-09-17] MEDS: TAMSULOSIN 0.4 MG CAP.ER.24H PO SCH (08:53)
[2018-09-17] MEDS: LACTOBACILLUS CHEW TABLET PO SCH ×3 (08:53→20:03)
[2018-09-17] MEDS: ENOXAPARIN 40 MG/0.4 ML SQ SCH (08:54)
[2018-09-17] MEDS: NYSTATIN TOPICAL POWDER 15GM TP SCH ×3 (08:54→20:03)
[2018-09-17 14:25] VITALS: BP 117/62
[2018-09-17 18:43] VITALS: BP 124/72
[2018-09-18 02:32] VITALS: BP 128/68
[2018-09-18 07:15] VITALS: BP 110/71
[2018-09-18] MEDS: DOXYCYCLINE 100MG TABLET PO SCH ×2 (09:17→21:57)
[2018-09-18] MEDS: AMOXICILLIN/CLAV 875-125MG TABLET PO SCH ×2 (09:17→21:57)
[2018-09-18] MEDS: ENOXAPARIN 40 MG/0.4 ML SQ SCH (09:17)
[2018-09-18] MEDS: FINASTERIDE 5 MG TABLET PO SCH (09:18)
[2018-09-18] MEDS: LACTOBACILLUS CHEW TABLET PO SCH ×3 (09:18→21:57)
[2018-09-18] MEDS: TAMSULOSIN 0.4 MG CAP.ER.24H PO SCH (09:18)
[2018-09-18] MEDS: NYSTATIN TOPICAL POWDER 15GM TP SCH ×3 (09:18→21:57)
[2018-09-18 13:45] VITALS: BP 140/69
[2018-09-18 19:55] VITALS: BP 114/67
[2018-09-19 01:43] VITALS: BP 123/71
[2018-09-19 07:00] VITALS: BP 122/68
[2018-09-19] MEDS: TAMSULOSIN 0.4 MG CAP.ER.24H PO SCH (08:57)
[2018-09-19] MEDS: LACTOBACILLUS CHEW TABLET PO SCH ×3 (08:57→22:05)
[2018-09-19] MEDS: FINASTERIDE 5 MG TABLET PO SCH (08:57)
[2018-09-19] MEDS: ENOXAPARIN 40 MG/0.4 ML SQ SCH (08:57)
[2018-09-19] MEDS: DOXYCYCLINE 100MG TABLET PO SCH ×2 (08:57→22:05)
[2018-09-19] MEDS: AMOXICILLIN/CLAV 875-125MG TABLET PO SCH ×2 (08:57→22:05)
[2018-09-19] MEDS: NYSTATIN TOPICAL POWDER 15GM TP SCH ×3 (08:58→22:05)
[2018-09-19 14:37] VITALS: BP 121/69
[2018-09-19 19:20] VITALS: BP 142/67
[2018-09-19 19:25] VITALS: BP 145/62
[2018-09-20 00:04] VITALS: BP 120/73
[2018-09-20] MEDS: DOXYCYCLINE 100MG TABLET PO SCH (09:00)
[2018-09-20] MEDS: LACTOBACILLUS CHEW TABLET PO SCH ×2 (09:00→16:00)
[2018-09-20] MEDS: AMOXICILLIN/CLAV 875-125MG TABLET PO SCH (09:00)
[2018-09-20] MEDS: TAMSULOSIN 0.4 MG CAP.ER.24H PO SCH (09:00)
[2018-09-20] MEDS: NYSTATIN TOPICAL POWDER 15GM TP SCH ×2 (09:00→16:00)
[2018-09-20] MEDS: FINASTERIDE 5 MG TABLET PO SCH (09:00)
[2018-09-20] MEDS: ENOXAPARIN 40 MG/0.4 ML SQ SCH (09:00)
[2018-09-20 09:23] VITALS: BP 115/68
[2018-09-20 12:45] VITALS: BP 119/71
[2018-09-20] MEDS ORDERED: DOXY100T PO (13:55)
[2018-09-20] MEDS ORDERED: FINA5TAB4 PO (13:55)
[2018-09-20] MEDS ORDERED: AMOX1TAB12 PO (13:55)
[2018-09-20] MEDS ORDERED: NYST60PO TP (13:55)
[2018-09-20] MEDS ORDERED: TAMS-11 PO (13:55)
[2018-09-20] MEDS ORDERED: ACET325T14 PO (13:55)
== END 2018-09-20 16:15 | disposition home or self-care (01) | DRG 871 ==
LOC: ED 09-10 03:54 → EDIP 09-10 04:45 → 4NOR 09-10 06:30 → DCLOUNGE 09-20 16:00
PROVIDERS: ADMIT Internal Medicine; ATTEND Internal Medicine
DX: A41.9 Sepsis, unspecified organism (principal); E43 Unspecified severe protein-calorie malnutrition; R53.2 Functional quadriplegia; L03.116 Cellulitis of left lower limb; L03.115 Cellulitis of right lower limb; I50.32 Chronic diastolic (congestive) heart failure; D64.9 Anemia, unspecified; E11.42 Type 2 diabetes mellitus with diabetic polyneuropathy; E11.65 Type 2 diabetes mellitus with hyperglycemia; I11.0 Hypertensive heart disease with heart failure; L89.151 Pressure ulcer of sacral region, stage 1; N30.90 Cystitis, unspecified without hematuria; N40.1 Benign prostatic hyperplasia with lower urinary tract symptoms; N49.2 Inflammatory disorders of scrotum; N50.89 Other specified disorders of the male genital organs; Z59.0 Homelessness; Z86.718 Personal history of other venous thrombosis and embolism; Z87.891 Personal history of nicotine dependence; Z91.14 Patient's other noncompliance with medication regimen; Z68.32 Body mass index [BMI] 32.0-32.9, adult
CPT/HCPCS: 36415; 72193; 80048; 80053; 80061; 80202; 81001; 83036; 83605; 83690; 83735; 84100; 84145; 84439; 84443; 84484; 85025; 85651; 86140; 87040; 87086; 96365; 96367; G0378; J0696; J1644; J1650; J2543; J3370; J3480; Q9967; J2270; J7030; J7040